=== PATIENT | male | born 1940 | race Caucasian/White ===

== ENCOUNTER 2023-12-16 22:22 | Emergency (ER) | payer OTHER, MEDICARE ==
[~2023-12-16] VITALS: Ht 175.3 cm; Wt 114.3 kg
[~2023-12-16 22:22] MED LIST: ACET-73 PO; ACET1TAB93 PO; ACET325T PO; ACYC400T19 PO; ALBU10.7 INH; BISA10SU61 RC; DOCU-144 PO; ESOM40CA53 PO; FAMO20TA8 PO; FLUT16SP16 NS; FLUT1BLS25; FURO-150 PO; HYDR-4037 PO; IRBE300T40 PO; LEVO75TA7 PO; LIP80 PO; LORA10TA7 PO; MOM PO; MULT-1117 PO; NA P133E41 RC; NALO4SPR NS; ONDA-8 TL; POTA8TAB66 PO; SENN8.6T19 PO; SPIRIVA INH; SUCR1ORA15 PO; TAMS-11 PO; [UNRECOGNIZED DRUG - CODE] PO
[2023-12-16 22:24] VITALS: BP_SYST 124; PULSE 66; RESP 22; TEMP 98.7; O2SAT 96
[2023-12-16] MEDS: MORPHINE 4 MG INJ. 4 MG/ML VIAL IVP ONE (23:01)
[2023-12-17] MEDS ORDERED: LIDO-54 TD (00:57)
[2023-12-17 01:01] LABS: BILIRUBIN,URINE NEGATIVE (NEGATIVE); CLARITY/URINE CLEAR (CLEAR); COLOR,URINE YELLOW (YELLOW); GLUCOSE,URINE NEGATIVE (NEGATIVE); KETONES,URINE NEGATIVE (NEGATIVE); LEUKOCYTE ESTERASE ,URINE NEGATIVE (NEGATIVE); NITRITE, URINE NEGATIVE (NEGATIVE); PH,URINE 6.5 (5.0-8.0); PROTEIN URINE NEGATIVE (NEGATIVE); UROBILINOGEN,URINE 0.2 (0.2-1.0)
[2023-12-17 01:33] LABS: BLOOD, URINE TRACE (NEGATIVE)
[2023-12-17 01:36] LABS: BACTERIA,URINE None Seen /HPF (None Seen); WBC,URINE 0-3 /HPF (0-3)
[2023-12-17 01:57] LABS: BASOPHILS # (AUTO) 0.1 K/uL (0.0-0.2); BASOPHILS % (AUTO) 1.4 % (0.0-2.0); EOSINOPHILS % (AUTO) 0.2 % (0.0-4.0); HEMATOCRIT 28.2 % (36-54); HEMOGLOBIN 9.3 g/dL (14.0-18.0); LYMPHOCYTES # (AUTO) 0.2 K/uL (1.0-5.5); LYMPHOCYTES % (AUTO) 4.6 % (20.5-51.5); MEAN CORPUSCULAR HEMOGLOBIN 31 pg (27-31); MEAN CORPUSCULAR HGB CONC 33 % (32-36); MEAN CORPUSCULAR VOLUME 93 fL (79.0-98.0); MONOCYTES # (AUTO) 0.5 K/uL (0.0-1.0); MONOCYTES % (AUTO) 11.8 % (1.7-9.3); NEUTROPHILS # (AUTO) 3.3 K/uL (1.8-7.7); PLATELET COUNT (AUTO) 210 K/uL (130-430); RED BLOOD CELL COUNT(AUTO) 3.03 MIL/uL (4.2-6.2); RED CELL DISTRIBUTION WIDTH 21.5 % (9.0-15.0)
[2023-12-17 03:01] LABS: ALANINE AMINOTRANSFERASE 37 U/L (12-78); ALBUMIN 2.6 g/dL (3.4-4.8); ANION GAP 10 (5-15); ASPARTATE AMINOTRANSFERASE 24 U/L (10-37); CALCIUM 9.1 mg/dL (8.4-11.0); CARBON DIOXIDE 28 mmol/L (23-29); CHLORIDE 105 mmol/L (98-107); CREATININE 1.64 mg/dL (0.55-1.30); GLUCOSE 104 mg/dL (74-106); LIPASE 47 U/L (16-77); SODIUM SERUM 143 mmol/L (136-145); TOTAL PROTEIN, SERUM 5.6 g/dL (6.4-8.3); UREA NITROGEN, BLOOD 15 mg/dL (8-21)
[2023-12-17] MEDS: MORPHINE 4 MG INJ. 4 MG/ML VIAL IVP ONE (03:15)
[2023-12-17] MEDS ORDERED: POTASSIUM CHLORIDE 20 MEQ TABLET.ER PO ONE (03:30)
[2023-12-17 06:28] VITALS: BP_SYST 121; PULSE 72; RESP 20; TEMP 97.6; O2SAT 97
== END 2023-12-17 06:28 | disposition home or self-care (01) ==
LOC: SED 22:22
DX: R10.9 Unspecified abdominal pain (principal); Z91.040 Latex allergy status; Z85.79 Personal history of other malignant neoplasms of lymphoid, hematopoietic and related tissues; Z79.899 Other long term (current) drug therapy
CPT/HCPCS: 99285; 74176; 96374; 71045; 80053; 81001; 83690; 85025; 84484; 36415; 81000; 81015; J2270; 93005